=== PATIENT | male | born 1930 | race Caucasian/White ===

== ENCOUNTER → 2016-11-25 | Outpatient (CLI) | payer MEDICARE, OTHER ==
[~2016-11-25] MED LIST: AMLO2.5T PO; CLOP75TA28 PO; MULTCHW OR
== END | disposition home or self-care (01) ==
LOC: HDHVI->DVH 08:52
PROVIDERS: ATTEND Internal Medicine Cardiovascular Disease
DX: I48.2 Chronic atrial fibrillation (principal); I25.2 Old myocardial infarction
CPT/HCPCS: 93880

== ENCOUNTER → 2016-11-27 | Outpatient (CLI) | payer MEDICARE, OTHER | END | disposition home or self-care (01) | LOC: Rad HDHVI 10:37 | PROVIDERS: ATTEND Internal Medicine Cardiovascular Disease | DX: I10 Essential (primary) hypertension (principal); I25.2 Old myocardial infarction; I48.2 Chronic atrial fibrillation; E11.9 Type 2 diabetes mellitus without complications; E78.5 Hyperlipidemia, unspecified; E78.00 Pure hypercholesterolemia, unspecified; R53.81 Other malaise; Z95.5 Presence of coronary angioplasty implant and graft | CPT/HCPCS: 93306 ==

== ENCOUNTER → 2017-02-19 | Outpatient (CLI) | payer MEDICARE, OTHER ==
[2017-02-19 12:18] LABS: Basophils # (auto) 0.1 uL; Basophils % (auto) 1.2 % (0.0-2.0); CONDITION Y; Eosinophils # (auto) 0.4 uL; Eosinophils % (auto) 8.1 % (0.0-7.0); Hematocrit 46.3 % (41.0-53.0); Hemoglobin 15.9 g/dL (13.5-17.5); Lymphocytes # (auto) 1.1 uL; Lymphocytes % (auto) 21.5 % (10.0-50.0); Mean Corpuscular Hemoglobin 33.2 pg (28.0-32.0); Mean Corpuscular Hgb Conc. 34.4 g/dL (32.0-36.0); Mean Corpuscular Volume 96.5 fL (80.0-100.0); Mean Platelet Volume 9.8 fL (7.4-10.4); Monocytes # (auto) 0.4 uL; Monocytes % (auto) 7.3 % (0.0-12.0); Neutrophils # (auto) 3.1 uL; Neutrophils % (auto) 61.9 % (37.0-80.0); Platelet Count (auto) 189 10^3/uL (140-450); Red Cell Distribution Width 12.9 % (11.6-16.0); Urine Bilirubin Negative (Negative); Urine Blood Negative /uL (Negative); Urine Color Yellow (Yellow); Urine Glucose Normal (Normal); Urine Ketone Negative (Negative); Urine Nitrite Negative (Negative); Urine Urobilinogen Normal (Negative); Urine pH 5.5 (5.0-8.0); White Blood Cell 4.9 10^3/uL (4.4-10.8)
[2017-02-19 13:02] LABS: BUN/Creatinine Ratio 22.7; Bilirubin, Direct 0.2 mg/dL (0-0.2); Bilirubin, Total 0.8 mg/dL (0.2-1.0); Calcium 9.3 mg/dL (8.5-10.1); Potassium 3.8 mmol/L (3.5-5.1); Total Protein 7.1 g/dL (6.4-8.2)
== END | disposition home or self-care (01) ==
LOC: LAB 08:02
PROVIDERS: ATTEND Internal Medicine Cardiovascular Disease
DX: I10 Essential (primary) hypertension (principal); E78.00 Pure hypercholesterolemia, unspecified; K74.1 Hepatic sclerosis; E11.9 Type 2 diabetes mellitus without complications; R97.20 Elevated prostate specific antigen [PSA]; R53.81 Other malaise; E03.9 Hypothyroidism, unspecified; D64.9 Anemia, unspecified; E55.9 Vitamin D deficiency, unspecified; N39.0 Urinary tract infection, site not specified
CPT/HCPCS: 36415; 80048; 80061; 80076; 81003; 82306; 83036; 84153; 84154; 84403; 84443; 85025

== ENCOUNTER → 2017-04-02 | Outpatient (CLI) | payer MEDICARE, OTHER ==
[~2017-04-02] VITALS: Ht 185.4 cm; Wt 99.8 kg
== END | disposition home or self-care (01) ==
LOC: Rad HDHVI 09:20
PROVIDERS: ATTEND Internal Medicine Cardiovascular Disease
DX: I25.10 Atherosclerotic heart disease of native coronary artery without angina pectoris (principal); I10 Essential (primary) hypertension; E78.00 Pure hypercholesterolemia, unspecified; Z95.0 Presence of cardiac pacemaker
CPT/HCPCS: 78452; 93017; 96374; A9500

== ENCOUNTER → 2017-11-10 | Outpatient (CLI) | payer MEDICARE, OTHER ==
[2017-11-10 12:04] LABS: Urine Blood Negative /uL (Negative); Urine Specific Gravity 1.013 (1.001-1.035)
[2017-11-10 12:11] LABS: Basophils # (auto) 0.1 uL; Basophils % (auto) 0.7 % (0.0-2.0); Eosinophils # (auto) 0.4 uL; Eosinophils % (auto) 4.2 % (0.0-7.0); Hematocrit 48.4 % (41.0-53.0); Hemoglobin 16.4 g/dL (13.5-17.5); Lymphocytes # (auto) 0.9 uL; Lymphocytes % (auto) 10.9 % (10.0-50.0); Mean Corpuscular Hemoglobin 33.1 pg (28.0-32.0); Mean Corpuscular Hgb Conc. 33.8 g/dL (32.0-36.0); Mean Corpuscular Volume 97.8 fL (80.0-100.0); Monocytes # (auto) 0.7 uL; Monocytes % (auto) 8.7 % (0.0-12.0); Neutrophils # (auto) 6.5 uL; Neutrophils % (auto) 75.5 % (37.0-80.0); Nucleated Red Blood Cells % 0.4 %; Platelet Count (auto) 162 10^3/uL (140-450); Red Blood Cells 4.95 10^6/uL (4.5-5.90); White Blood Cell 8.6 10^3/uL (4.4-10.8)
[2017-11-10 12:33] LABS: Free T4 (Free Thyroxine) 1.1 ng/dL (0.89-1.76)
[2017-11-10 12:34] LABS: Prostate Specific Antigen 8.26 ng/mL (0.0-4.0)
[2017-11-10 12:39] LABS: Albumin 4.2 g/dL (3.4-5.0); BUN/Creatinine Ratio 12.4; Bilirubin, Total 1.1 mg/dL (0.2-1.0); Calcium 9.6 mg/dL (8.5-10.1); Potassium 4.2 mmol/L (3.5-5.1); Total Protein 7.8 g/dL (6.4-8.2)
== END | disposition home or self-care (01) ==
LOC: LAB 08:01
PROVIDERS: ATTEND Internal Medicine
DX: E78.5 Hyperlipidemia, unspecified (principal); D64.9 Anemia, unspecified; I10 Essential (primary) hypertension; E11.9 Type 2 diabetes mellitus without complications; E03.9 Hypothyroidism, unspecified; E55.9 Vitamin D deficiency, unspecified; R53.81 Other malaise; R97.20 Elevated prostate specific antigen [PSA]; D51.9 Vitamin B12 deficiency anemia, unspecified; N39.0 Urinary tract infection, site not specified
CPT/HCPCS: 36415; 80053; 80061; 81003; 82306; 82607; 83036; 84153; 84154; 84403; 84439; 84443; 85025

== ENCOUNTER 2018-03-23 09:16 | Emergency (ER) | payer MEDICARE, OTHER ==
[~2018-03-23] VITALS: Ht 185.4 cm; Wt 99.8 kg
[2018-03-23] MEDS ORDERED: SODIUM CHLORIDE 0.9% 1,000 ML IV ONE (09:51)
[2018-03-23 10:10] LABS: Basophils # (auto) 0.1 uL; Basophils % (auto) 1.5 % (0.0-2.0); Eosinophils # (auto) 0.3 uL; Eosinophils % (auto) 6.8 % (0.0-7.0); Hematocrit 47.8 % (41.0-53.0); Hemoglobin 16.1 g/dL (13.5-17.5); Lymphocytes % (auto) 22.5 % (10.0-50.0); Mean Corpuscular Hemoglobin 32.4 pg (28.0-32.0); Mean Corpuscular Hgb Conc. 33.6 g/dL (32.0-36.0); Mean Corpuscular Volume 96.3 fL (80.0-100.0); Monocytes # (auto) 0.3 uL; Monocytes % (auto) 7.8 % (0.0-12.0); Neutrophils # (auto) 2.7 uL; Neutrophils % (auto) 61.4 % (37.0-80.0); Platelet Count (auto) 175 10^3/uL (140-450); Red Blood Cells 4.97 10^6/uL (4.5-5.90); Red Cell Distribution Width 12.7 % (11.8-14.3); White Blood Cell 4.4 10^3/uL (4.4-10.8)
[2018-03-23 10:24] LABS: Partial Thromboplastin Time 27.3 sec (23.78-33.04); Prothrombin Time 10.7 sec (9.27-12.13)
[2018-03-23 10:28] LABS: Alanine Aminotransferase 33 U/L (16-61); Albumin 3.8 g/dL (3.4-5.0); Anion Gap 9 (5-15); Aspartate Aminotransferase 21 U/L (15-37); BUN/Creatinine Ratio 15.4; Blood Urea Nitrogen 16 mg/dL (7-18); Calcium 8.8 mg/dL (8.5-10.1); Carbon Dioxide 25 mmol/L (21-32); Chloride 105 mmol/L (98-107); GFR African American 87 mL/min; GFR Non-African American 72 mL/min; Glucose 217 mg/dL (74-106); Magnesium 2.2 mg/dL (1.6-2.6); Potassium 3.8 mmol/L (3.5-5.1); Sodium 139 mmol/L (136-145)
[2018-03-23 10:33] LABS: Alkaline Phosphatase 73 U/L (45-117); Bilirubin, Total 0.9 mg/dL (0.2-1.0); Total Protein 7.4 g/dL (6.4-8.2)
[2018-03-23 12:10] VITALS: BP 148/79
== END 2018-03-23 13:36 | disposition home or self-care (01) ==
LOC: ER 09:16
DX: I24.9 Acute ischemic heart disease, unspecified (principal); I25.810 Atherosclerosis of coronary artery bypass graft(s) without angina pectoris; I10 Essential (primary) hypertension; Z87.891 Personal history of nicotine dependence; Z88.0 Allergy status to penicillin
CPT/HCPCS: 36415; 71045; 80053; 83735; 83880; 84484; 85025; 85610; 85730; 93005; 99285; J7030

== ENCOUNTER → 2018-08-31 | Outpatient (CLI) | payer MEDICARE, BC ==
[~2018-08-31] MED LIST changes: -AMLO2.5T PO; +AMLO2.5T6 PO
== END | disposition home or self-care (01) ==
LOC: Rad HDHVI 09:02
PROVIDERS: ATTEND Internal Medicine Cardiovascular Disease
DX: I25.10 Atherosclerotic heart disease of native coronary artery without angina pectoris (principal); I34.0 Nonrheumatic mitral (valve) insufficiency; I10 Essential (primary) hypertension
CPT/HCPCS: 93306

== ENCOUNTER → 2018-09-06 | Outpatient (CLI) | payer MEDICARE, BC ==
[~2018-09-06] VITALS: Ht 185.4 cm; Wt 99.8 kg
[2018-09-06 12:21] LABS: Albumin 3.9 g/dL (3.4-5.0); BUN/Creatinine Ratio 18.8; Calcium 8.8 mg/dL (8.5-10.1); Potassium 4.1 mmol/L (3.5-5.1); Urine Blood Negative /uL (Negative); Urine Specific Gravity 1.016 (1.001-1.035)
[2018-09-06 12:44] LABS: Basophils # (auto) 0 uL; Basophils % (auto) 0.8 % (0.0-2.0); Eosinophils # (auto) 0.3 uL; Eosinophils % (auto) 5.7 % (0.0-7.0); Hematocrit 47.9 % (41.0-53.0); Hemoglobin 16.5 g/dL (13.5-17.5); Lymphocytes # (auto) 0.9 uL; Lymphocytes % (auto) 16.4 % (10.0-50.0); Mean Corpuscular Hemoglobin 33.6 pg (28.0-32.0); Mean Corpuscular Hgb Conc. 34.5 g/dL (32.0-36.0); Mean Corpuscular Volume 97.2 fL (80.0-100.0); Monocytes # (auto) 0.5 uL; Monocytes % (auto) 8.6 % (0.0-12.0); Neutrophils # (auto) 3.9 uL; Neutrophils % (auto) 68.5 % (37.0-80.0); Nucleated Red Blood Cells % 0.5 %; Platelet Count (auto) 181 10^3/uL (140-450); Red Blood Cells 4.92 10^6/uL (4.5-5.90); Red Cell Distribution Width 12.5 % (11.8-14.3); White Blood Cell 5.7 10^3/uL (4.4-10.8)
[2018-09-06 12:59] LABS: Bilirubin, Total 0.7 mg/dL (0.2-1.0); Total Protein 7.4 g/dL (6.4-8.2)
[2018-09-06 13:39] LABS: Free T4 (Free Thyroxine) 1.13 ng/dL (0.89-1.76)
== END | disposition home or self-care (01) ==
LOC: Rad HDHVI 07:55
PROVIDERS: ATTEND Internal Medicine
DX: I10 Essential (primary) hypertension (principal); C61 Malignant neoplasm of prostate; N39.0 Urinary tract infection, site not specified; I25.10 Atherosclerotic heart disease of native coronary artery without angina pectoris; E03.9 Hypothyroidism, unspecified; E55.9 Vitamin D deficiency, unspecified; E29.1 Testicular hypofunction; D51.9 Vitamin B12 deficiency anemia, unspecified; Z79.899 Other long term (current) drug therapy
CPT/HCPCS: 36415; 80053; 80061; 81003; 82306; 82607; 83036; 84403; 84439; 84443; 85025

== ENCOUNTER → 2019-04-05 | Outpatient (CLI) | payer MEDICARE, BC ==
[~2019-04-05] MED LIST changes: -AMLO2.5T6 PO; +AMLO2.5T7 PO
== END | disposition home or self-care (01) ==
LOC: Rad HDHVI 09:48
PROVIDERS: ATTEND Internal Medicine
DX: M25.511 Pain in right shoulder (principal)
CPT/HCPCS: 73030

== ENCOUNTER → 2019-08-24 | Outpatient (CLI) | payer MEDICARE, BC | END | disposition home or self-care (01) | LOC: Rad HDHVI 08:50 | PROVIDERS: ATTEND Internal Medicine | DX: I11.9 Hypertensive heart disease without heart failure (principal); I25.10 Atherosclerotic heart disease of native coronary artery without angina pectoris; I25.2 Old myocardial infarction | CPT/HCPCS: 93306 ==

== ENCOUNTER → 2019-09-12 | Outpatient (CLI) | payer MEDICARE, BC ==
[~2019-09-12] VITALS: Ht 185.4 cm; Wt 102.1 kg
[2019-09-12 12:22] LABS: Basophils # (auto) 0.1 uL; Basophils % (auto) 1.3 % (0.0-2.0); Eosinophils # (auto) 0.3 uL; Hematocrit 49.3 % (41.0-53.0); Hemoglobin 16.4 g/dL (13.5-17.5); Lymphocytes % (auto) 22.3 % (10.0-50.0); Mean Corpuscular Hemoglobin 33.1 pg (28.0-32.0); Mean Corpuscular Hgb Conc. 33.4 g/dL (32.0-36.0); Monocytes # (auto) 0.4 uL; Monocytes % (auto) 8.3 % (0.0-12.0); Neutrophils # (auto) 2.8 uL; Neutrophils % (auto) 61.1 % (37.0-80.0); Nucleated Red Blood Cells % 0.2 %; Platelet Count (auto) 169 10^3/uL (140-450); Red Blood Cells 4.98 10^6/uL (4.5-5.90); Red Cell Distribution Width 12.8 % (11.8-14.3); White Blood Cell 4.5 10^3/uL (4.4-10.8)
[2019-09-12 12:46] LABS: Free T4 (Free Thyroxine) 1.11 ng/dL (0.89-1.76)
[2019-09-12 13:03] LABS: Albumin 4.2 g/dL (3.4-5.0); BUN/Creatinine Ratio 15.2; Bilirubin, Total 0.8 mg/dL (0.2-1.0); Calcium 9.3 mg/dL (8.5-10.1); Total Protein 7.6 g/dL (6.4-8.2)
[2019-09-12 13:14] LABS: Prostate Specific Antigen 8.26 ng/mL (0.0-4.0)
== END | disposition home or self-care (01) ==
LOC: Rad HDHVI 08:02
PROVIDERS: ATTEND Internal Medicine Cardiovascular Disease
DX: E03.9 Hypothyroidism, unspecified (principal); I25.10 Atherosclerotic heart disease of native coronary artery without angina pectoris; I10 Essential (primary) hypertension; E78.5 Hyperlipidemia, unspecified; K90.9 Intestinal malabsorption, unspecified; C61 Malignant neoplasm of prostate; E29.1 Testicular hypofunction; D51.9 Vitamin B12 deficiency anemia, unspecified; Z79.899 Other long term (current) drug therapy; Z95.5 Presence of coronary angioplasty implant and graft
CPT/HCPCS: 36415; 78452; 80053; 80061; 82306; 82607; 83036; 84153; 84154; 84403; 84439; 84443; 85025; 93017; 96374; A9500

== ENCOUNTER → 2020-03-27 | Outpatient (CLI) | payer MEDICARE, BC ==
[~2020-03-27] MED LIST changes: +AMLO-483 PO; -AMLO2.5T7 PO
== END | disposition home or self-care (01) ==
LOC: Rad HDHVI 09:59
PROVIDERS: ATTEND Internal Medicine Cardiovascular Disease
DX: I10 Essential (primary) hypertension (principal); I73.9 Peripheral vascular disease, unspecified; J44.9 Chronic obstructive pulmonary disease, unspecified; M19.90 Unspecified osteoarthritis, unspecified site
CPT/HCPCS: 93925

== ENCOUNTER → 2020-12-18 | Outpatient (CLI) | payer MEDICARE, BC | END | disposition home or self-care (01) | LOC: Rad HDHVI 08:53 | PROVIDERS: ATTEND Internal Medicine | DX: I10 Essential (primary) hypertension (principal); E78.5 Hyperlipidemia, unspecified | CPT/HCPCS: 93306 ==

== ENCOUNTER → 2020-12-31 | Outpatient (CLI) | payer MEDICARE, BC ==
[~2020-12-31] VITALS: Ht 185.4 cm; Wt 99.8 kg
== END | disposition home or self-care (01) ==
LOC: Rad HDHVI 08:55
PROVIDERS: ATTEND Internal Medicine
DX: I25.119 Atherosclerotic heart disease of native coronary artery with unspecified angina pectoris (principal); I25.10 Atherosclerotic heart disease of native coronary artery without angina pectoris; I48.20 Chronic atrial fibrillation, unspecified; I10 Essential (primary) hypertension; E78.5 Hyperlipidemia, unspecified; R53.1 Weakness
CPT/HCPCS: 78452; 93017; 96374; A9500

== ENCOUNTER 2021-07-19 19:06 | Inpatient (IN) | payer MEDICARE, BC ==
[~2021-07-19] VITALS: Ht 185.4 cm; Wt 88.9 kg
[2021-07-19 20:31] LABS: Basophils # (auto) 0 10 ^3/uL (0-0.2); Basophils % (auto) 0.2 % (0.0-2.0); Eosinophils # (auto) 0 10 ^3/uL (0-0.8); Hematocrit 42.2 % (41.0-53.0); Hemoglobin 15.2 g/dL (13.5-17.5); Lymphocytes # (auto) 0.3 10 ^3/uL (0.4-5.4); Lymphocytes % (auto) 6.5 % (10.0-50.0); Mean Corpuscular Volume 91.7 fL (80.0-100.0); Monocytes # (auto) 0.4 10 ^3/uL (0-1.3); Monocytes % (auto) 9.6 % (0.0-12.0); Neutrophils # (auto) 3.5 10 ^3/uL (1.6-8.6); Neutrophils % (auto) 83.7 % (37.0-80.0); Nucleated Red Blood Cells % 0.3 %; Red Cell Distribution Width 12.3 % (11.8-14.3); White Blood Cell 4.2 10^3/uL (4.4-10.8)
[2021-07-19 20:37] LABS: Albumin 3.5 g/dL (3.4-5.0); Calcium 8.1 mg/dL (8.5-10.1); Potassium 3.7 mmol/L (3.5-5.1)
[2021-07-19 20:42] LABS: Lactic Acid w/Reflex 2.1 mmol/L (0.4-2.0)
[2021-07-19 20:44] LABS: Total Protein 6.8 g/dL (6.4-8.2)
[2021-07-19] MEDS ORDERED: AZITHROMYCIN 500MG/ 250ML 250 ML IV ONE (21:45)
[2021-07-19] MEDS ORDERED: SODIUM CHLORIDE 0.9% 500 ML IV ONE (21:45)
[2021-07-19] MEDS ORDERED: DexAMETHasone SOD PHOS 10MG/1ML VIAL INJ IV ONE (21:45)
[2021-07-19] MEDS ORDERED: ACETAMINOPHEN 500 MG TAB PO PRN (22:15)
[2021-07-19] MEDS ORDERED: ONDANSETRON HCL 4 MG/2 ML VIAL IV PRN (22:15)
[2021-07-19] MEDS ORDERED: DOCUSATE SOD 100 MG CAP PO PRN (22:15)
[2021-07-20] MEDS ORDERED: NITROGLYCERIN 0.4 MG SL TAB SL PRN
[2021-07-20] MEDS ORDERED: MORPHINE SULFATE INJECTION 2 MG/ML SYRG IV PRN
[2021-07-20 02:05] VITALS: BP 137/72
[2021-07-20] MEDS: HYDROcodone-ACET 5/325MG TAB PO PRN (03:43)
[2021-07-20] MEDS: SODIUM CHLORIDE 0.9% 1,000 ML IV SCH ×2 (03:43→16:14)
[2021-07-20 04:43] LABS: Urine Bacteria NONE SEEN /hpf (None Seen); Urine Blood 3+ /uL (Negative); Urine WBC 17 /hpf (0 - 3)
[2021-07-20] MEDS ORDERED: TAMSULOSIN HYDROCHLORIDE 0.4 MG CAP PO ONE (04:45)
[2021-07-20 05:00] VITALS: BP 160/81
[2021-07-20 07:03] LABS: Basophils # (auto) 0 10 ^3/uL (0-0.2); Basophils % (auto) 0.2 % (0.0-2.0); Eosinophils # (auto) 0 10 ^3/uL (0-0.8); Hematocrit 42.2 % (41.0-53.0); Hemoglobin 15.1 g/dL (13.5-17.5); Lymphocytes # (auto) 0.2 10 ^3/uL (0.4-5.4); Lymphocytes % (auto) 5.1 % (10.0-50.0); Mean Corpuscular Hemoglobin 32.9 pg (28.0-32.0); Mean Corpuscular Hgb Conc. 35.9 g/dL (32.0-36.0); Mean Corpuscular Volume 91.8 fL (80.0-100.0); Monocytes # (auto) 0.3 10 ^3/uL (0-1.3); Neutrophils # (auto) 3.6 10 ^3/uL (1.6-8.6); Neutrophils % (auto) 86.7 % (37.0-80.0); Nucleated Red Blood Cells % 0.1 %; Red Blood Cells 4.59 10^6/uL (4.5-5.90); Red Cell Distribution Width 12.3 % (11.8-14.3); White Blood Cell 4.2 10^3/uL (4.4-10.8)
[2021-07-20 07:19] LABS: Albumin 3.2 g/dL (3.4-5.0); Calcium 8.5 mg/dL (8.5-10.1); Potassium 3.8 mmol/L (3.5-5.1)
[2021-07-20 07:31] LABS: BUN/Creatinine Ratio 15.7; Total Protein 6.6 g/dL (6.4-8.2)
[2021-07-20 09:00] VITALS: BP 136/68
[2021-07-20] MEDS ORDERED: REMDESIVIR PER PHARMACY 0 ML IV SCH (09:30)
[2021-07-20] MEDS: FAMOTIDINE (10MG/ML) 2ML VL IV SCH ×2 (10:12→22:02)
[2021-07-20] MEDS: ASCORBIC ACID 1,000 MG TAB PO SCH (10:12)
[2021-07-20] MEDS: ZINC SULFATE 220mg CAP or TAB PO SCH (10:12)
[2021-07-20] MEDS: MULTIPLE VITAMIN TAB PO SCH (10:12)
[2021-07-20] MEDS: ENOXAPARIN SOD 40 MG/0.4 ML SYRINGE SC SCH ×2 (10:13→22:00)
[2021-07-20] MEDS: CHOLECALCIFEROL (VITD3) 2,000 UNIT CAP/TAB PO SCH (10:13)
[2021-07-20] MEDS ORDERED: REMDESIVIR 200 MG in NS 210ml LOADING DOSE ADULT IV ONE (11:00)
[2021-07-20 13:00] VITALS: BP 144/77
[2021-07-20 17:00] VITALS: BP 137/84
[2021-07-20] MEDS: TAMSULOSIN HYDROCHLORIDE 0.4 MG CAP PO SCH (17:22)
[2021-07-20] MEDS: ALBUTEROL SULF HFA 90MCG INH 200DOSE IN PRN (20:16)
[2021-07-20] MEDS: BUDESONIDE (INHALATION) 180 MCG IH IN SCH ×2 (20:17→22:00)
[2021-07-20 22:00] VITALS: BP 129/70
[2021-07-20] MEDS: AZITHROMYCIN 500MG/ 250ML 250 ML IV SCH (22:04)
[2021-07-20] MEDS: DexAMETHasone SOD PHOS 10MG/1ML VIAL INJ IV SCH (22:04)
[2021-07-21 05:00] VITALS: BP 137/87
[2021-07-21 06:03] LABS: Albumin 2.9 g/dL (3.4-5.0); Calcium 8.2 mg/dL (8.5-10.1); Potassium 4.2 mmol/L (3.5-5.1)
[2021-07-21 06:08] LABS: BUN/Creatinine Ratio 21.2; Bilirubin, Total 0.9 mg/dL (0.2-1.0); Total Protein 5.7 g/dL (6.4-8.2)
[2021-07-21] MEDS: BUDESONIDE (INHALATION) 180 MCG IH IN SCH ×2 (06:13→22:00)
[2021-07-21] MEDS: ALBUTEROL SULF HFA 90MCG INH 200DOSE IN PRN ×2 (06:13→23:06)
[2021-07-21] MEDS: ENOXAPARIN SOD 40 MG/0.4 ML SYRINGE SC SCH ×2 (08:32→22:00)
[2021-07-21] MEDS: SODIUM CHLORIDE 0.9% 1,000 ML IV SCH (08:32)
[2021-07-21] MEDS: ZINC SULFATE 220mg CAP or TAB PO SCH (08:32)
[2021-07-21] MEDS: FAMOTIDINE (10MG/ML) 2ML VL IV SCH ×2 (08:32→22:11)
[2021-07-21] MEDS: CHOLECALCIFEROL (VITD3) 2,000 UNIT CAP/TAB PO SCH (08:32)
[2021-07-21] MEDS: MULTIPLE VITAMIN TAB PO SCH (08:32)
[2021-07-21] MEDS: ASCORBIC ACID 1,000 MG TAB PO SCH (08:32)
[2021-07-21 09:00] VITALS: BP 133/74
[2021-07-21] MEDS: REMDESIVIR 100mg 100 MG in SODIUM CHL 0.9% 230 ML IV SCH (14:38)
[2021-07-21] MEDS: TAMSULOSIN HYDROCHLORIDE 0.4 MG CAP PO SCH (17:11)
[2021-07-21 22:00] VITALS: BP 144/73
[2021-07-21] MEDS: AZITHROMYCIN 500MG/ 250ML 250 ML IV SCH (22:12)
[2021-07-21] MEDS: DexAMETHasone SOD PHOS 10MG/1ML VIAL INJ IV SCH (22:12)
[2021-07-21 23:30] VITALS: BP 133/74
[2021-07-21] MEDS: HYDROcodone-ACET 5/325MG TAB PO PRN (23:30)
[2021-07-22] VITALS (8 sets, daily range): BP systolic 123–145; BP diastolic 60–75
[2021-07-22] MEDS: SODIUM CHLORIDE 0.9% 1,000 ML IV SCH ×2 (00:15→16:55)
[2021-07-22] MEDS: ALBUTEROL SULF HFA 90MCG INH 200DOSE IN PRN ×3 (06:23→21:30)
[2021-07-22] MEDS: BUDESONIDE (INHALATION) 180 MCG IH IN SCH ×2 (06:23→19:04)
[2021-07-22] MEDS: ENOXAPARIN SOD 40 MG/0.4 ML SYRINGE SC SCH ×2 (10:00→21:27)
[2021-07-22] MEDS: CHOLECALCIFEROL (VITD3) 2,000 UNIT CAP/TAB PO SCH (10:15)
[2021-07-22] MEDS: FAMOTIDINE (10MG/ML) 2ML VL IV SCH ×2 (10:15→21:27)
[2021-07-22] MEDS: MULTIPLE VITAMIN TAB PO SCH (10:15)
[2021-07-22] MEDS: ZINC SULFATE 220mg CAP or TAB PO SCH (10:15)
[2021-07-22] MEDS: ASCORBIC ACID 1,000 MG TAB PO SCH (10:15)
[2021-07-22] MEDS: REMDESIVIR 100mg 100 MG in SODIUM CHL 0.9% 230 ML IV SCH (15:20)
[2021-07-22] MEDS: TAMSULOSIN HYDROCHLORIDE 0.4 MG CAP PO SCH (18:11)
[2021-07-22] MEDS: DexAMETHasone SOD PHOS 10MG/1ML VIAL INJ IV SCH (21:27)
[2021-07-22] MEDS: AZITHROMYCIN 500MG/ 250ML 250 ML IV SCH (21:27)
[2021-07-22] MEDS: HYDROcodone-ACET 5/325MG TAB PO PRN (22:53)
[2021-07-23 05:23] VITALS: BP 148/76
[2021-07-23] MEDS: BUDESONIDE (INHALATION) 180 MCG IH IN SCH ×2 (06:10→22:25)
[2021-07-23] MEDS: ALBUTEROL SULF HFA 90MCG INH 200DOSE IN PRN ×2 (06:10→22:49)
[2021-07-23 06:58] LABS: Basophils # (auto) 0 10 ^3/uL (0-0.2); Basophils % (auto) 0.1 % (0.0-2.0); Eosinophils # (auto) 0 10 ^3/uL (0-0.8); Hematocrit 45.3 % (41.0-53.0); Hemoglobin 16.3 g/dL (13.5-17.5); Lymphocytes # (auto) 0.2 10 ^3/uL (0.4-5.4); Lymphocytes % (auto) 2.4 % (10.0-50.0); Mean Corpuscular Hemoglobin 33.5 pg (28.0-32.0); Mean Corpuscular Hgb Conc. 36.1 g/dL (32.0-36.0); Mean Corpuscular Volume 92.9 fL (80.0-100.0); Monocytes # (auto) 0.6 10 ^3/uL (0-1.3); Monocytes % (auto) 6.5 % (0.0-12.0); Neutrophils # (auto) 8.2 10 ^3/uL (1.6-8.6); Red Blood Cells 4.87 10^6/uL (4.5-5.90); Red Cell Distribution Width 12.6 % (11.8-14.3)
[2021-07-23 07:20] LABS: Albumin 3.3 g/dL (3.4-5.0); Calcium 8.7 mg/dL (8.5-10.1); Potassium 4.3 mmol/L (3.5-5.1)
[2021-07-23 07:25] LABS: BUN/Creatinine Ratio 27.4; Bilirubin, Total 1.3 mg/dL (0.2-1.0); Total Protein 6.4 g/dL (6.4-8.2)
[2021-07-23 09:00] VITALS: BP 120/62
[2021-07-23] MEDS: SODIUM CHLORIDE 0.9% 1,000 ML IV SCH (09:35)
[2021-07-23] MEDS: CHOLECALCIFEROL (VITD3) 2,000 UNIT CAP/TAB PO SCH (09:38)
[2021-07-23] MEDS: MULTIPLE VITAMIN TAB PO SCH (09:38)
[2021-07-23] MEDS: ZINC SULFATE 220mg CAP or TAB PO SCH (09:38)
[2021-07-23] MEDS: ASCORBIC ACID 1,000 MG TAB PO SCH (09:38)
[2021-07-23] MEDS: FAMOTIDINE (10MG/ML) 2ML VL IV SCH ×2 (09:38→21:44)
[2021-07-23] MEDS: HYDROcodone-ACET 5/325MG TAB PO PRN (09:39)
[2021-07-23] MEDS: ENOXAPARIN SOD 40 MG/0.4 ML SYRINGE SC SCH ×2 (09:39→21:45)
[2021-07-23] MEDS: DexAMETHasone SOD PHOS 10MG/1ML VIAL INJ IV SCH ×2 (11:30→20:29)
[2021-07-23 13:00] VITALS: BP 140/88
[2021-07-23] MEDS ORDERED: IVERMECTIN PO SCH (13:00)
[2021-07-23] MEDS: REMDESIVIR 100mg 100 MG in SODIUM CHL 0.9% 230 ML IV SCH (14:57)
[2021-07-23] MEDS: IVERMECTIN 3 MG TAB PO SCH (16:00)
[2021-07-23 17:00] VITALS: BP 138/70
[2021-07-23] MEDS: TAMSULOSIN HYDROCHLORIDE 0.4 MG CAP PO SCH (18:00)
[2021-07-23] MEDS: CARBIDOPA W LEVODOPA 25/100mg TABLET PO SCH (21:44)
[2021-07-23] MEDS: AZITHROMYCIN 500MG/ 250ML 250 ML IV SCH (21:44)
[2021-07-23 22:42] VITALS: BP 146/77
[2021-07-23] MEDS: LORazepam 2MG/ML-1ML VIAL IV PRN (23:21)
[2021-07-24] VITALS (7 sets, daily range): BP systolic 130–151; BP diastolic 50–95
[2021-07-24] MEDS: HALOPERIDOL LACTATE 5 MG/ML INJ VIAL IM PRN (00:40)
[2021-07-24] MEDS: SODIUM CHLORIDE 0.9% 1,000 ML IV SCH ×2 (02:15→20:02)
[2021-07-24] MEDS: DexAMETHasone SOD PHOS 10MG/1ML VIAL INJ IV SCH ×3 (03:42→22:04)
[2021-07-24] MEDS: BUDESONIDE (INHALATION) 180 MCG IH IN SCH ×2 (10:00→22:00)
[2021-07-24] MEDS: ENOXAPARIN SOD 40 MG/0.4 ML SYRINGE SC SCH ×2 (10:00→20:01)
[2021-07-24] MEDS: FAMOTIDINE (10MG/ML) 2ML VL IV SCH ×2 (10:34→22:03)
[2021-07-24] MEDS: IVERMECTIN 3 MG TAB PO SCH (10:41)
[2021-07-24] MEDS: ZINC SULFATE 220mg CAP or TAB PO SCH (10:45)
[2021-07-24] MEDS: ASCORBIC ACID 1,000 MG TAB PO SCH (10:45)
[2021-07-24] MEDS: MULTIPLE VITAMIN TAB PO SCH (10:45)
[2021-07-24] MEDS: CHOLECALCIFEROL (VITD3) 2,000 UNIT CAP/TAB PO SCH (10:46)
[2021-07-24] MEDS: ALBUTEROL SULF HFA 90MCG INH 200DOSE IN PRN ×2 (11:23→23:05)
[2021-07-24] MEDS: REMDESIVIR 100mg 100 MG in SODIUM CHL 0.9% 230 ML IV SCH (15:14)
[2021-07-24] MEDS: TAMSULOSIN HYDROCHLORIDE 0.4 MG CAP PO SCH (18:23)
[2021-07-24] MEDS: AZITHROMYCIN 500MG/ 250ML 250 ML IV SCH (22:03)
[2021-07-24] MEDS: CARBIDOPA W LEVODOPA 25/100mg TABLET PO SCH (22:04)
[2021-07-25] VITALS (7 sets, daily range): BP systolic 138–154; BP diastolic 74–95
[2021-07-25] MEDS: BUDESONIDE (INHALATION) 180 MCG IH IN SCH ×2 (05:58→19:19)
[2021-07-25] MEDS: ALBUTEROL SULF HFA 90MCG INH 200DOSE IN PRN ×2 (05:58→21:17)
[2021-07-25] MEDS: DexAMETHasone SOD PHOS 10MG/1ML VIAL INJ IV SCH ×2 (09:58→21:36)
[2021-07-25] MEDS: ENOXAPARIN SOD 40 MG/0.4 ML SYRINGE SC SCH ×2 (09:59→21:37)
[2021-07-25] MEDS: FAMOTIDINE (10MG/ML) 2ML VL IV SCH ×2 (09:59→21:37)
[2021-07-25] MEDS: ZINC SULFATE 220mg CAP or TAB PO SCH (09:59)
[2021-07-25] MEDS: CHOLECALCIFEROL (VITD3) 2,000 UNIT CAP/TAB PO SCH (10:00)
[2021-07-25] MEDS: IVERMECTIN 3 MG TAB PO SCH (10:00)
[2021-07-25] MEDS: ASCORBIC ACID 1,000 MG TAB PO SCH (10:00)
[2021-07-25] MEDS: MULTIPLE VITAMIN TAB PO SCH (10:00)
[2021-07-25] MEDS: CARBIDOPA W LEVODOPA 25/100mg TABLET PO SCH ×2 (11:39→21:37)
[2021-07-25] MEDS: TAMSULOSIN HYDROCHLORIDE 0.4 MG CAP PO SCH (18:01)
[2021-07-25] MEDS: LORazepam 2MG/ML-1ML VIAL IV PRN (21:37)
[2021-07-25] MEDS: HALOPERIDOL LACTATE 5 MG/ML INJ VIAL IM PRN (22:46)
[2021-07-26 05:00] VITALS: BP 125/57
[2021-07-26] MEDS: BUDESONIDE (INHALATION) 180 MCG IH IN SCH ×2 (06:47→22:00)
[2021-07-26] MEDS: ALBUTEROL SULF HFA 90MCG INH 200DOSE IN PRN (06:48)
[2021-07-26] MEDS: Ensure Enlive Strawberry 8oz Bottle PO SCH ×2 (08:30→18:23)
[2021-07-26 09:00] VITALS: BP 138/79
[2021-07-26] MEDS: DexAMETHasone SOD PHOS 10MG/1ML VIAL INJ IV SCH ×2 (10:30→21:30)
[2021-07-26] MEDS: ENOXAPARIN SOD 40 MG/0.4 ML SYRINGE SC SCH ×2 (10:31→21:31)
[2021-07-26] MEDS: FAMOTIDINE (10MG/ML) 2ML VL IV SCH ×2 (10:31→21:29)
[2021-07-26] MEDS: IVERMECTIN 3 MG TAB PO SCH (10:32)
[2021-07-26] MEDS: ASCORBIC ACID 1,000 MG TAB PO SCH (10:32)
[2021-07-26] MEDS: CARBIDOPA W LEVODOPA 25/100mg TABLET PO SCH ×2 (10:32→21:30)
[2021-07-26] MEDS: CHOLECALCIFEROL (VITD3) 2,000 UNIT CAP/TAB PO SCH (10:32)
[2021-07-26] MEDS: ZINC SULFATE 220mg CAP or TAB PO SCH (10:33)
[2021-07-26] MEDS: MULTIPLE VITAMIN TAB PO SCH (10:33)
[2021-07-26 13:00] VITALS: BP 136/84
[2021-07-26] MEDS ORDERED: IPRATROPIUM BROM 0.5 MG/2.5ML INH SOL NEB ONE (13:15)
[2021-07-26] MEDS ORDERED: FUROSEMIDE 40 MG/4 ML VIAL IV ONE (13:15)
[2021-07-26 14:38] LABS: Basophils # (auto) 0 10 ^3/uL (0-0.2); Basophils % (auto) 0.2 % (0.0-2.0); Eosinophils # (auto) 0 10 ^3/uL (0-0.8); Hematocrit 46.9 % (41.0-53.0); Hemoglobin 16.3 g/dL (13.5-17.5); Lymphocytes # (auto) 0.2 10 ^3/uL (0.4-5.4); Lymphocytes % (auto) 1.9 % (10.0-50.0); Mean Corpuscular Hemoglobin 32.8 pg (28.0-32.0); Mean Corpuscular Hgb Conc. 34.8 g/dL (32.0-36.0); Monocytes # (auto) 0.7 10 ^3/uL (0-1.3); Monocytes % (auto) 5.4 % (0.0-12.0); Neutrophils # (auto) 11.6 10 ^3/uL (1.6-8.6); Neutrophils % (auto) 92.5 % (37.0-80.0); Nucleated Red Blood Cells % 0.1 %; Red Blood Cells 4.99 10^6/uL (4.5-5.90); Red Cell Distribution Width 12.6 % (11.8-14.3); White Blood Cell 12.5 10^3/uL (4.4-10.8)
[2021-07-26 15:02] LABS: Albumin 3.2 g/dL (3.4-5.0); Calcium 8.7 mg/dL (8.5-10.1)
[2021-07-26 15:06] LABS: BUN/Creatinine Ratio 38.2; Bilirubin, Total 1.5 mg/dL (0.2-1.0); Total Protein 6.4 g/dL (6.4-8.2)
[2021-07-26 17:00] VITALS: BP 133/68
[2021-07-26] MEDS: TAMSULOSIN HYDROCHLORIDE 0.4 MG CAP PO SCH (18:23)
[2021-07-26 22:00] VITALS: BP 123/62
[2021-07-27 05:00] VITALS: BP 115/66
[2021-07-27] MEDS: Ensure Enlive Strawberry 8oz Bottle PO SCH ×2 (08:00→18:00)
[2021-07-27] MEDS: BUDESONIDE (INHALATION) 180 MCG IH IN SCH ×2 (08:25→22:04)
[2021-07-27] MEDS: DexAMETHasone SOD PHOS 10MG/1ML VIAL INJ IV SCH ×2 (09:45→22:15)
[2021-07-27] MEDS: MULTIPLE VITAMIN TAB PO SCH (09:46)
[2021-07-27] MEDS: IVERMECTIN 3 MG TAB PO SCH (09:46)
[2021-07-27] MEDS: FAMOTIDINE (10MG/ML) 2ML VL IV SCH ×2 (09:46→22:15)
[2021-07-27] MEDS: ZINC SULFATE 220mg CAP or TAB PO SCH (09:46)
[2021-07-27] MEDS: ASCORBIC ACID 1,000 MG TAB PO SCH (09:46)
[2021-07-27] MEDS: CHOLECALCIFEROL (VITD3) 2,000 UNIT CAP/TAB PO SCH (09:47)
[2021-07-27] MEDS: ENOXAPARIN SOD 40 MG/0.4 ML SYRINGE SC SCH ×2 (09:47→22:16)
[2021-07-27] MEDS: CARBIDOPA W LEVODOPA 25/100mg TABLET PO SCH ×2 (09:48→22:16)
[2021-07-27 10:00] VITALS: BP 115/88
[2021-07-27 13:00] VITALS: BP 150/79
[2021-07-27 17:27] VITALS: BP 137/79
[2021-07-27] MEDS: TAMSULOSIN HYDROCHLORIDE 0.4 MG CAP PO SCH (18:03)
[2021-07-27 22:00] VITALS: BP 142/87
[2021-07-27] MEDS: ALBUTEROL SULF HFA 90MCG INH 200DOSE IN PRN (22:04)
[2021-07-28] VITALS (10 sets, daily range): BP systolic 127–142; BP diastolic 69–87
[2021-07-28] MEDS: Ensure Enlive Strawberry 8oz Bottle PO SCH ×2 (08:00→18:00)
[2021-07-28] MEDS: ALBUTEROL SULF HFA 90MCG INH 200DOSE IN PRN (09:15)
[2021-07-28] MEDS: BUDESONIDE (INHALATION) 180 MCG IH IN SCH ×2 (09:15→21:45)
[2021-07-28] MEDS: ASCORBIC ACID 1,000 MG TAB PO SCH (10:00)
[2021-07-28] MEDS: ZINC SULFATE 220mg CAP or TAB PO SCH (10:00)
[2021-07-28] MEDS: CARBIDOPA W LEVODOPA 25/100mg TABLET PO SCH ×2 (10:00→22:11)
[2021-07-28] MEDS: DexAMETHasone SOD PHOS 10MG/1ML VIAL INJ IV SCH ×2 (10:00→22:08)
[2021-07-28] MEDS: ENOXAPARIN SOD 40 MG/0.4 ML SYRINGE SC SCH ×2 (10:00→22:12)
[2021-07-28] MEDS: MULTIPLE VITAMIN TAB PO SCH (10:00)
[2021-07-28] MEDS: CHOLECALCIFEROL (VITD3) 2,000 UNIT CAP/TAB PO SCH (10:00)
[2021-07-28] MEDS: FAMOTIDINE (10MG/ML) 2ML VL IV SCH ×2 (10:00→22:09)
[2021-07-28] MEDS: TAMSULOSIN HYDROCHLORIDE 0.4 MG CAP PO SCH (18:00)
[2021-07-29] VITALS (8 sets, daily range): BP systolic 123–142; BP diastolic 64–81
[2021-07-29] MEDS: Ensure Enlive Strawberry 8oz Bottle PO SCH ×2 (08:17→18:13)
[2021-07-29] MEDS: BUDESONIDE (INHALATION) 180 MCG IH IN SCH ×2 (09:14→21:43)
[2021-07-29] MEDS: ALBUTEROL SULF HFA 90MCG INH 200DOSE IN PRN ×2 (09:14→21:43)
[2021-07-29] MEDS: CHOLECALCIFEROL (VITD3) 2,000 UNIT CAP/TAB PO SCH (13:20)
[2021-07-29] MEDS: CARBIDOPA W LEVODOPA 25/100mg TABLET PO SCH ×2 (13:21→21:27)
[2021-07-29] MEDS: MULTIPLE VITAMIN TAB PO SCH (13:22)
[2021-07-29] MEDS: ZINC SULFATE 220mg CAP or TAB PO SCH (13:22)
[2021-07-29] MEDS: ASCORBIC ACID 1,000 MG TAB PO SCH (13:22)
[2021-07-29] MEDS: DexAMETHasone SOD PHOS 10MG/1ML VIAL INJ IV SCH ×2 (13:23→21:27)
[2021-07-29] MEDS: ENOXAPARIN SOD 40 MG/0.4 ML SYRINGE SC SCH ×2 (13:23→21:27)
[2021-07-29] MEDS: FAMOTIDINE (10MG/ML) 2ML VL IV SCH ×2 (13:23→21:27)
[2021-07-29 16:17] LABS: Basophils # (auto) 0 10 ^3/uL (0-0.2); Basophils % (auto) 0.1 % (0.0-2.0); Eosinophils # (auto) 0 10 ^3/uL (0-0.8); Eosinophils % (auto) 0.1 % (0.0-7.0); Hematocrit 48.6 % (41.0-53.0); Hemoglobin 16.6 g/dL (13.5-17.5); Lymphocytes # (auto) 0.2 10 ^3/uL (0.4-5.4); Lymphocytes % (auto) 1.3 % (10.0-50.0); Mean Corpuscular Hemoglobin 32.3 pg (28.0-32.0); Mean Corpuscular Hgb Conc. 34.2 g/dL (32.0-36.0); Mean Corpuscular Volume 94.5 fL (80.0-100.0); Monocytes # (auto) 0.9 10 ^3/uL (0-1.3); Monocytes % (auto) 5.2 % (0.0-12.0); Neutrophils # (auto) 16.4 10 ^3/uL (1.6-8.6); Neutrophils % (auto) 93.3 % (37.0-80.0); Nucleated Red Blood Cells % 0.1 %; Red Blood Cells 5.15 10^6/uL (4.5-5.90); Red Cell Distribution Width 12.3 % (11.8-14.3); White Blood Cell 17.6 10^3/uL (4.4-10.8)
[2021-07-29 16:25] LABS: Albumin 2.9 g/dL (3.4-5.0); Potassium 5.1 mmol/L (3.5-5.1)
[2021-07-29 16:28] LABS: BUN/Creatinine Ratio 46.7; Bilirubin, Total 1.1 mg/dL (0.2-1.0); Total Protein 6.3 g/dL (6.4-8.2)
[2021-07-29] MEDS: TAMSULOSIN HYDROCHLORIDE 0.4 MG CAP PO SCH (18:12)
[2021-07-30] VITALS (8 sets, daily range): BP systolic 131–148; BP diastolic 62–75
[2021-07-30] MEDS: ALBUTEROL SULF HFA 90MCG INH 200DOSE IN PRN (07:46)
[2021-07-30] MEDS: BUDESONIDE (INHALATION) 180 MCG IH IN SCH ×2 (07:46→22:19)
[2021-07-30] MEDS: ZINC SULFATE 220mg CAP or TAB PO SCH ×2 (10:00→12:37)
[2021-07-30] MEDS: MULTIPLE VITAMIN TAB PO SCH ×2 (10:00→12:37)
[2021-07-30] MEDS: CARBIDOPA W LEVODOPA 25/100mg TABLET PO SCH ×3 (10:00→22:06)
[2021-07-30] MEDS: ASCORBIC ACID 1,000 MG TAB PO SCH ×2 (10:00→12:37)
[2021-07-30] MEDS: CHOLECALCIFEROL (VITD3) 2,000 UNIT CAP/TAB PO SCH ×2 (10:00→12:37)
[2021-07-30] MEDS: Ensure Enlive Strawberry 8oz Bottle PO SCH ×2 (11:14→18:52)
[2021-07-30] MEDS: DexAMETHasone SOD PHOS 10MG/1ML VIAL INJ IV SCH ×2 (12:36→22:05)
[2021-07-30] MEDS: FAMOTIDINE (10MG/ML) 2ML VL IV SCH ×2 (12:37→22:05)
[2021-07-30] MEDS: ENOXAPARIN SOD 40 MG/0.4 ML SYRINGE SC SCH ×2 (12:37→22:06)
[2021-07-30] MEDS ORDERED: SODIUM CHLORIDE 0.9% 1,000 ML IV SCH (16:30)
[2021-07-30] MEDS: TAMSULOSIN HYDROCHLORIDE 0.4 MG CAP PO SCH (18:52)
[2021-07-31] MEDS: ALBUTEROL SULF HFA 90MCG INH 200DOSE IN PRN ×3 (00:32→23:29)
[2021-07-31 04:59] VITALS: BP 155/71
[2021-07-31] MEDS: BUDESONIDE (INHALATION) 180 MCG IH IN SCH ×2 (06:50→19:29)
[2021-07-31] MEDS: Ensure Enlive Strawberry 8oz Bottle PO SCH ×2 (08:00→18:00)
[2021-07-31 09:00] VITALS: BP 141/64
[2021-07-31] MEDS: FAMOTIDINE (10MG/ML) 2ML VL IV SCH ×2 (10:00→22:26)
[2021-07-31] MEDS: DexAMETHasone SOD PHOS 10MG/1ML VIAL INJ IV SCH ×2 (10:00→22:26)
[2021-07-31 12:34] VITALS: BP 155/93
[2021-07-31] MEDS: CHOLECALCIFEROL (VITD3) 2,000 UNIT CAP/TAB PO SCH (14:00)
[2021-07-31] MEDS: CARBIDOPA W LEVODOPA 25/100mg TABLET PO SCH ×3 (14:00→22:26)
[2021-07-31] MEDS: ZINC SULFATE 220mg CAP or TAB PO SCH (14:00)
[2021-07-31] MEDS: ASCORBIC ACID 1,000 MG TAB PO SCH (14:00)
[2021-07-31] MEDS: MULTIPLE VITAMIN TAB PO SCH (14:00)
[2021-07-31 17:00] VITALS: BP 169/86
[2021-07-31] MEDS: TAMSULOSIN HYDROCHLORIDE 0.4 MG CAP PO SCH (18:00)
[2021-07-31 22:00] VITALS: BP 160/88
[2021-07-31 23:01] LABS: Basophils # (auto) 0.1 10 ^3/uL (0-0.2); Basophils % (auto) 0.3 % (0.0-2.0); Eosinophils # (auto) 0 10 ^3/uL (0-0.8); Hematocrit 50.3 % (41.0-53.0); Hemoglobin 16.9 g/dL (13.5-17.5); Lymphocytes # (auto) 0.3 10 ^3/uL (0.4-5.4); Lymphocytes % (auto) 1.6 % (10.0-50.0); Mean Corpuscular Hemoglobin 31.9 pg (28.0-32.0); Mean Corpuscular Hgb Conc. 33.6 g/dL (32.0-36.0); Mean Corpuscular Volume 95.2 fL (80.0-100.0); Monocytes # (auto) 1.3 10 ^3/uL (0-1.3); Monocytes % (auto) 7.2 % (0.0-12.0); Neutrophils # (auto) 15.9 10 ^3/uL (1.6-8.6); Neutrophils % (auto) 90.9 % (37.0-80.0); Nucleated Red Blood Cells % 0.1 %; Red Blood Cells 5.29 10^6/uL (4.5-5.90); Red Cell Distribution Width 12.5 % (11.8-14.3); White Blood Cell 17.5 10^3/uL (4.4-10.8)
[2021-07-31 23:23] LABS: Albumin 2.8 g/dL (3.4-5.0); BUN/Creatinine Ratio 48.2; Potassium 5.4 mmol/L (3.5-5.1)
[2021-07-31 23:25] LABS: Bilirubin, Total 1.3 mg/dL (0.2-1.0); Total Protein 5.9 g/dL (6.4-8.2)
[2021-08-01] MEDS: HALOPERIDOL LACTATE 5 MG/ML INJ VIAL IM PRN ×2 (00:47→09:30)
[2021-08-01 05:00] VITALS: BP 142/67
[2021-08-01] MEDS: Ensure Enlive Strawberry 8oz Bottle PO SCH (08:00)
[2021-08-01 09:29] VITALS: BP 142/67
[2021-08-01] MEDS: DexAMETHasone SOD PHOS 10MG/1ML VIAL INJ IV SCH (10:00)
[2021-08-01] MEDS: ZINC SULFATE 220mg CAP or TAB PO SCH (10:00)
[2021-08-01] MEDS: MULTIPLE VITAMIN TAB PO SCH (10:00)
[2021-08-01] MEDS: CHOLECALCIFEROL (VITD3) 2,000 UNIT CAP/TAB PO SCH (10:00)
[2021-08-01] MEDS: CARBIDOPA W LEVODOPA 25/100mg TABLET PO SCH (10:00)
[2021-08-01] MEDS: FAMOTIDINE (10MG/ML) 2ML VL IV SCH (10:00)
[2021-08-01] MEDS: ASCORBIC ACID 1,000 MG TAB PO SCH (10:00)
[2021-08-01] MEDS: HYDROmorphone HCL 2 MG/ML VL IV PRN ×2 (11:45→15:00)
[2021-08-01 13:00] VITALS: BP 157/92
[2021-08-01] MEDS ORDERED: MORPHINE SUL PCA 50 ML IV SCH (15:45)
[2021-08-01] MEDS ORDERED: MORPHINE SULFATE IV SCH (16:00)
[2021-08-01] MEDS ORDERED: MORPHINE IV SCH (16:00)
[2021-08-01] MEDS ORDERED: D5W 5% IV SCH (16:00)
[2021-08-01 17:22] VITALS: BP 119/71
== END 2021-08-01 18:03 | DRG 177 ==
LOC: ER 19:06 → TELE 23:50 → TELE-EAST 07-20 02:02 → TELE-E-ADS 07-21 23:20
PROVIDERS: ADMIT Nurse Practitioner Family; ATTEND Internal Medicine Cardiovascular Disease
PROC: XW033E5 Introduction of Remdesivir Anti-infective into Peripheral Vein, Percutaneous Approach, New Technology Group 5 (ICD-10-PCS; principal; 2021-07-20)
PROC: 5A0935A Assistance with Respiratory Ventilation, Less than 24 Consecutive Hours, High Flow/Velocity Cannula (ICD-10-PCS; 2021-07-22)
PROC: 5A0935A Assistance with Respiratory Ventilation, Less than 24 Consecutive Hours, High Flow/Velocity Cannula (ICD-10-PCS; 2021-07-23)
PROC: 5A09357 Assistance with Respiratory Ventilation, Less than 24 Consecutive Hours, Continuous Positive Airway Pressure (ICD-10-PCS; 2021-07-23)
PROC: 5A0935A Assistance with Respiratory Ventilation, Less than 24 Consecutive Hours, High Flow/Velocity Cannula (ICD-10-PCS; 2021-07-24)
PROC: 5A09357 Assistance with Respiratory Ventilation, Less than 24 Consecutive Hours, Continuous Positive Airway Pressure (ICD-10-PCS; 2021-07-24)
PROC: 5A0935A Assistance with Respiratory Ventilation, Less than 24 Consecutive Hours, High Flow/Velocity Cannula (ICD-10-PCS; 2021-07-25)
PROC: 5A09357 Assistance with Respiratory Ventilation, Less than 24 Consecutive Hours, Continuous Positive Airway Pressure (ICD-10-PCS; 2021-07-25)
PROC: 5A09457 Assistance with Respiratory Ventilation, 24-96 Consecutive Hours, Continuous Positive Airway Pressure (ICD-10-PCS; 2021-07-26)
PROC: 5A0945A Assistance with Respiratory Ventilation, 24-96 Consecutive Hours, High Flow/Velocity Cannula (ICD-10-PCS; 2021-07-28)
PROC: 5A0935A Assistance with Respiratory Ventilation, Less than 24 Consecutive Hours, High Flow/Velocity Cannula (ICD-10-PCS; 2021-07-31)
PROC: 5A09357 Assistance with Respiratory Ventilation, Less than 24 Consecutive Hours, Continuous Positive Airway Pressure (ICD-10-PCS; 2021-08-01)
DX: U07.1 COVID-19 (principal); J12.82 Pneumonia due to coronavirus disease 2019; J96.01 Acute respiratory failure with hypoxia; E87.1 Hypo-osmolality and hyponatremia; J98.11 Atelectasis; F23 Brief psychotic disorder; I10 Essential (primary) hypertension; I25.10 Atherosclerotic heart disease of native coronary artery without angina pectoris; N40.0 Benign prostatic hyperplasia without lower urinary tract symptoms; R31.0 Gross hematuria; G25.81 Restless legs syndrome; T38.0X5A Adverse effect of glucocorticoids and synthetic analogues, initial encounter; Z88.0 Allergy status to penicillin; Y92.89 Other specified places as the place of occurrence of the external cause; I25.2 Old myocardial infarction; Z82.49 Family history of ischemic heart disease and other diseases of the circulatory system; Z83.3 Family history of diabetes mellitus
CPT/HCPCS: 36415; 36600; 71045; 80053; 81001; 82728; 82805; 83036; 83605; 83615; 83735; 83880; 84484; 85025; 85379; 86141; 87040; 87426; 93005; 93970; 94640; 94660; 96361; 96365; 97163; 97530; G0378; J1100; J2270; J3490; J7060